=== PATIENT | female | born 1970 | race African-American/Black ===

== ENCOUNTER 2016-11-10 15:43 | Emergency (ER) ==
[2016-11-10 15:55] VITALS: BP 155/96
[2016-11-10] MEDS ORDERED: NORFLEX IM ONE (17:07)
[2016-11-10] MEDS ORDERED: TORADOL IM ONE (17:07)
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
--- NOTE | 2016-11-11 08:26 | Diag Imaging Result Document ---
PROCEDURE NAME: SHOULDER-LEFT - 11/10/2016 LEFT SHOULDER, THREE VIEWS INCLUDING AND AXILLARY Y VIEW: FINDINGS: No separation at the acromioclavicular joint. No fracture. No dislocation. There are surgical clips in the left axilla. IMPRESSION: No acute bony injury.
--- NOTE | 2016-11-11 10:44 | Diag Imaging Result Document ---
PROCEDURE NAME: CERVICAL SPINE COMPLETE - 11/10/2016 CERVICAL SPINE 7 VIEWS: No comparison exam. FINDINGS: There are some early degenerative changes with small anterior osteophytes. There is no fracture, subluxation, or precervical soft-tissue swelling identified. IMPRESSION: No evidence of fracture or subluxation. If occult injury is strongly suspected clinically, CT scan could be considered.
== END 2016-11-10 18:33 | disposition home or self-care (01) ==
LOC: P.ED 15:43
DX: S16.1XXA Strain of muscle, fascia and tendon at neck level, initial encounter (principal); M25.512 Pain in left shoulder; M54.2 Cervicalgia; I50.9 Heart failure, unspecified; I10 Essential (primary) hypertension; Z85.3 Personal history of malignant neoplasm of breast; V43.62XA Car passenger injured in collision with other type car in traffic accident, initial encounter; Z79.899 Other long term (current) drug therapy
CPT/HCPCS: 72050; 96372; J1885; J2360